=== PATIENT | male | born 1975 | race Caucasian/White ===

== ENCOUNTER 2019-12-07 22:57 | Emergency (ER) | payer BC, SELFPAY ==
--- NOTE | 2019-12-07 23:10 | XR_ITS ---
WS: [id number] PORTABLE CHEST HISTORY: Chest Pain COMPARISON: None Lungs are clear and well expanded. No pleural effusion or pneumothorax. Cardiac size: Normal. Mediastinum/Aorta: Normal mediastinum. 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 XR/XR chest 1V portable [id number] IMPRESSION: Unremarkable portable chest.
--- NOTE | 2019-12-07 23:10 | ED_ITS ---
HPI - Chest Pain General: Chief Complaint: Chest Pain Stated Complaint: CP Time Seen by Provider: 12/07/19 23:01 History of Present Illness: HPI narrative: Aroldo is a nice 44-year-old male who comes in complaining of chest pain. He states the pain is mostly in his back and it feels like a knotting type of ache. This pain has been constant for 7 days. He went to his chiropractor 3 days into this illness for an adjustment which helped the pain but it never resolved completely. The next 2 days after this he had some mild shortness of breath but the pain continued and came back to its initial intensity. Since that time the pain has waxed and waned but will not completely go away. He is unaware of anything that makes his pain better or worse other than the described chiropractic treatment. He denies any associated symptoms such as nausea and vomiting, diaphoresis, migration of his pain and he specifically denies any ripping tearing or migrating type of sensation. Tonight he had some occasional sharp chest pains that lasted just a few seconds and because of this that is why he came to the hospital. Associated symptoms: Deny abdominal pain, diaphoresis, dyspnea, fever(s), nausea, palpitations, syncope or vomiting Review of Systems General: Reports: other (negative unless marked) Const: Denies: fever, chills, body aches, fatigue, malaise or diaphoresis Eyes: Denies: change in vision or blurry vision ENMT: Denies: throat pain, painful swallowing, hoarseness, ear pain, ear discharge, Change in hearing or nasal discharge Card: Reports: chest pain; Denies: palpitations, irregular heart rhythm, syncope, pre-syncope, shortness of breath on exertion or shortness of breath when lying down Resp: Denies: shortness of breath, productive cough, non-productive cough, wheezing, coughing up blood or chest congestion GI: Denies: abdominal pain, nausea, vomiting, vomiting blood, coffee grounds in vomit, diarrhea, constipation, cramping, blood in stool or black tarry stool : Denies: flank pain, difficulty urinating, painful urination, urinary frequency, urinary urgency, decreased urine ouput, urinary incontinence or blood in urine Musc: Reports: back pain; Denies: neck pain, extremity pain, extremity swelling, joint pain, joint swelling, joint warmth or joint stiffness Skin/Breast: Denies: rash, skin tenderness or yellow skin Neuro: Denies: headache, numbness in extremities, weakness in extremities, changes in sensation, lack of coordination, difficulty walking, dizziness, v ertigo or confusion Endo: Denies: excessive thirst, tired all the time, cold intolerance, excessive sweating, flushing or hot flashes Balbir/Lymph: Denies: easy bruising, easy bleeding, petechiae or enlarged lymph nodes All/Imm: Denies: hives, throat swelling, tongue swelling, facial swelling or acute wheezing PFSH ED PFSH: Medical History (Updated 12/08/19 @ 01:41 by Avelina Lr) Hiatal hernia Surgical History (Updated 12/07/19 @ 23:14 by Avelina Lr) H/O hernia repair Family History (Updated 12/07/19 @ 23:14 by Avelina Lr) Other CAD (coronary artery disease) Social History (Updated 12/07/19 @ 23:14 by Avelina Lr) Smoking and tobacco status: never smoked Quit status (tobacco): has quit using tobacco Year quit tobacco: 2018 Physical Exam Const: COMMON NORMALS: no apparent distress, oriented x3, no limitations, healthy appearing and well nourished EXAM LIMITATIONS: no altered mental status GENERAL APPEARANCE: cooperative, well kempt and well developed ORIENTATION/CONSCIOUSNESS: Yes awake HENMT: COMMON NORMALS: normocephalic, head/scalp atraumatic, hearing grossly normal bilaterally, external ears normal, EAC's normal, external nose normal and moist oral mucous membranes HEAD & SCALP: normal to inspection, normocephalic and atraumatic FACE & SINUS: normal facial exam and face symmetric NOSE: external nose normal and nares normal EXTERNAL EAR: Yes external ears normal EXTERNAL AUDITORY CANAL: EAC's normal MOUTH: oral and palatal mucosa normal and tongue normal Eye: COMMON NORMALS: PERRL, EOMs intact bilaterally, conjunctivae normal and no scleral icterus GENERAL EYE: normal appearance of both eyes and normal light reflex CONJUNCTIVA: Yes conjunctivae normal SCLERA: sclerae normal CORNEA: Yes corneas normal PUPIL: Yes PERRL DIRECT OPHTHALMOSCOPY: Yes normal light reflex Neck/C-Spine: COMMON NORMALS: full ROM, no lymphadenopathy, supple, no meningeal signs and no JVD GENERAL: Yes normal visual inspection and Yes trachea midline CERVICAL SPINE: Yes cervical ROM normal Chest: COMMONS NORMALS: inspection of chest normal and palpation of chest normal Resp: COMMON NORMALS: normal respiratory effort, no retractions, no use of accessory muscles and clear to auscultation bilaterally EFFORT & INSPECTION: Yes able to speak in complete sentences AUSCULTATION: clear to auscultation bilaterally Cardio: COMMON NORMALS: no JVD, regular rate, regular rhythm, S1 normal heart sound, S2 normal heart sound, no gallops, no clicks, no murmurs, no rub and pe ripheral pulses 2+ throughout JUGULAR VENOUS DISTENTION: no JVD RATE: regular rate RHYTHM: regular rhythm HEART SOUNDS: S1 normal and S2 normal PERIPHERAL PULSES: pulses 2+ throughout GI: COMMON NORMALS: soft to palpation, non-tender, no hepatosplenomegaly and no masses INSPECTION: Yes normal to inspection PALPATION: Yes soft and Yes no hepatosplenomegaly : COMMON NORMALS: Yes no CVA tenderness BLADDER/KIDNEY EXAM: Yes no CVA tenderness Back/Pelvis: COMMON NORMALS: no CVA tenderness, thoracic and lumbar spine normal to inspection, no thoracic nor lumbar tenderness and thoraco-lumbar ROM normal Extremity: COMMON NORMALS: normal to inspection, full ROM, normal capillary refill, no joint enlargement, no clubbing, cyanosis or edema and no calf tenderness Neuro: COMMON NORMALS: oriented x3, CN's II-XII intact bilaterally, moves all extremities, no focal motor deficits and no sensory deficits noted MENINGEAL SIGNS: Yes no meningeal signs Psych: COMMON NORMALS: mental status grossly normal, thought process normal, cooperative, affect normal, speech normal and activity/motor behavior normal APPEARANCE: Yes well kempt SPEECH: Yes normal speech THOUGHT PROCESS: normal thought process Skin: COMMON NORMALS: no rashes or lesions noted, skin turgor normal, no jaundice, no petechiae and no mottling GENERAL SKIN EXAM: no rashes or lesions noted and turgor normal Course Vital Signs: Vital signs: Vital Signs Temperature 97.8 F 12/07/19 23:11 Pulse Rate 74 12/08/19 01:56 Respiratory Rate 16 12/08/19 01:56 Blood Pressure 135/85 12/08/19 01:56 Pulse Oximetry 98 12/08/19 01:56 MDM - Chest Pain MDM Narrative: Medical decision making narrative: 0003 -patient's EKG and troponin are unremarkable. With over a week's worth of pain I believe this excludes acute coronary syndrome as a cause for his symptoms. I believe an aortic dissection is unlikely as the patient has a negative d-dimer, a normal chest x-ray, strong equal peripheral pulses to all extremities, both carotid arteries, both femoral arteries and both feet. He does not describe a ripping/tearing sensation on there has been no migration of his pain. I did discuss this with him and after this he is declining that test and does not want to go through a CT scan. I have encouraged him to stay for another EKG and troponin per the hospital chest pain pathway and he does agree to do this. Discharge -the patient is still feeling good without any complaint of pain. Is pain at baseline is still present but again he has had 2 normal EKGs that are unchanged and 2- cardiac enzymes. His heart score is a 3. Nonetheless I offered to admit the patient to the hospital to alleviate his fears but he declines. He strongly feels this is musculoskeletal and he feels as though if he has had okay EKGs and cardiac enzymes here he would like to go home. He does agree to return if his symptoms change or worsen but at this time he is feeling better would like to be discharged. The patient was warned but he was also welcomed to to return. Lab Data: Labs: Lab Results 12/07/19 12/07/19 12/07/19 Range/Units 23:20 23:20 23:20 WBC 6.6 (4.0-10.0) 10^3/ uL RBC 5.04 (4.1-5.3) 10^6/u L Hgb 14.8 (11.7-16.6) g/dL Hct 43.9 (42.0-52.0) % MCV 87.1 (80-94) fL MCH 29.4 (28.0-34.0) pg MCHC 33.7 (30.0-36.0) g/dL RDW 11.8 L (12.1-15.1) % Plt Count 248 (130-400) 10^3/c mm MPV 8.6 (7.4-10.4) fL Neut % (Auto) 43.2 % Lymph % (Auto) 41.3 % Humphreys % (Auto) 7.9 % Eos % (Auto) 6.2 % Baso % (Auto) 1.2 % Neut # (Auto) 2.9 (1.8-7.7) 10^3/u L Lymph # (Auto) 2.7 (0.8-4.8) 10^3/u L Humphreys # (Auto) 0.5 (0.2-0.9) 10^3/u L Eos # (Auto) 0.4 (0.0-0.8) 10^3/u L Baso # (Auto) 0.1 (0.0-0.1) 10^3/u L Nucleated RBC % (a uto) 0 % Nucleated RBCs # 0.0 /100WBC D-Dimer <= 0.27 (0-0.59) ug/mIFE U Sodium 138 (136-145) mmol/L Potassium 4.0 (3.5-5.1) mmol/L Chloride 100 (98-107) mmol/L Carbon Dioxide 29 (22-29) mmol/L Anion Gap 13.0 (5-19) BUN 13 (6-20) mg/dL Creatinine 1.1 (0.7-1.2) mg/dL GFR Calculation 72.4 L (90-130) mL/min Glucose 123 H (65-115) mg/dL Calculated Osmolal ity 284 L (285-295) mOsm/k g Calcium 10.3 (8.5-10.5) mg/dL Total Bilirubin 0.3 (0.15-1.2) mg/dL AST 17 (0-40) U/L ALT 15 (0-41) U/L Alkaline Phosphata se 80 (40-130) IU/L Troponin T Baselin e (0-15) ng/mL Troponin T 120 Min knik (0-15) ng/mL Delta Troponin T (0-10) ABS# Total Protein 7.5 (6.6-8.7) g/dL Albumin 4.8 (3.5-5.2) g/dL Globulin 2.7 (1.3-4.6) g/dL Lipase 28 (13-60) U/L 12/07/19 12/08/19 Range/Units 23:20 01:02 WBC (4.0-10.0) 10^3/ uL RBC (4.1-5.3) 10^6/u L Hgb (11.7-16.6) g/dL Hct (42.0-52.0) % MCV (80-94) fL MCH (28.0-34.0) pg MCHC (30.0-36.0) g/dL RDW (12.1-15.1) % Plt Count (130-400) 10^3/c mm MPV (7.4-10.4) fL Neut % (Auto) % Lymph % (Auto) % Humphreys % (Auto) % Eos % (Auto) % Baso % (Auto) % Neut # (Auto) (1.8-7.7) 10^3/u L Lymph # (Auto) (0.8-4.8) 10^3/u L Humphreys # (Auto) (0.2-0.9) 10^3/u L Eos # (Auto) (0.0-0.8) 10^3/u L Baso # (Auto) (0.0-0.1) 10^3/u L Nucleated RBC % (a uto) % Nucleated RBCs # /100WBC D-Dimer (0-0.59) ug/mIFE U Sodium (136-145) mmol/L Potassium (3.5-5.1) mmol/L Chloride (98-107) mmol/L Carbon Dioxide (22-29) mmol/L Anion Gap (5-19) BUN (6-20) mg/dL Creatinine (0.7-1.2) mg/dL GFR Calculation (90-130) mL/min Glucose (65-115) mg/dL Calculated Osmolal ity (285-295) mOsm/k g Calcium (8.5-10.5) mg/dL Total Bilirubin (0.15-1.2) mg/dL AST (0-40) U/L ALT (0-41) U/L Alkaline Phosphata se (40-130) IU/L Troponin T Baselin e 8 (0-15) ng/mL Troponin T 120 Min knik 7.39 (0-15) ng/mL Delta Troponin T -0.61 L (0-10) ABS# Total Protein (6.6-8.7) g/dL Albumin (3.5-5.2) g/dL Globulin (1.3-4.6) g/dL Lipase (13-60) U/L Imaging Data^: CXR: Radiologist's impression: No acute cardiopulmonary findings. EKG Data^: EKG 1: Attestation: I personally reviewed and interpreted this EKG as follows: EKG interpretation date: 12/07/19 EKG interpretation time: 23:07 Interpretation: Normal sinus rhythm at 79 beats a minute, right bundle branch block, nonspecific ST and T wave changes. EKG 2: Attestation: I personally reviewed and interpreted this EKG as follows: EKG interpretation date: 12/08/19 EKG interpretation time: 01:23 Interpretation: Normal sinus rhythm at 73 beats a minute, right bundle branch block, no other acute ST-T wave changes. Unchanged from previous. Discharge Plan Discharge Patient Disposition: Home, Self-Care Clinical Impression: Chest pain Qualifiers: Chest pain type: unspecified Qualified Code(s): R07.9 - Chest pain, unspecified Condition: Stable Prescriptions: New aspirin 325 mg tablet 325 mg PO DAILY Qty: 30 RF: 0 Discharge Orders: Discharge Order (Routine); Ordered 12/08/19 Ordered By: Avelina Lr Referrals: Yoselin Melendez MD [Physician] - 1-3 days Discharge Diet: Advance as tolerated Discharge Activity: Increase activity as tolerated Patient Instructions: Chest Pain (ED) Activity Restrictions/Additional Instructions: Please return to the ER immediately for any of the signs or symptoms listed on your discharge instruction sheets, worsening/changing of your symptoms, you are not getting better as quickly as expected, or for ANY other cause or concerns. You have been offered further evaluation and care of your heart including admission for stress testing but have declined. If your symptoms return or you change your mind you are more than welcome to return to the ER for recheck. Be certain to follow-up with your doctor or follow-up with Dr. Melendez as soon as possible for further evaluation and care. Discharge Date/Time: 12/08/19 01:56 Coding Level of Care Code ED Special Education Director for Chg Fwd Exam Comprehensive
[2019-12-07 23:11] VITALS: BP 183/103; PULSE 70; RESP 18; TEMP 36.6; O2SAT 100; BMI 26.6
[2019-12-07 23:30] LABS: Basophils # 0.1 10^3/uL (0.0-0.1); Basophils % 1.2 %; Eosinophils # 0.4 10^3/uL (0.0-0.8); Eosinophils % 6.2 %; Hematocrit 43.9 % (42.0-52.0); Hemoglobin 14.8 g/dL (11.7-16.6); Lymphocytes # 2.7 10^3/uL (0.8-4.8); Lymphocytes % 41.3 %; Mean Corpuscular HGB Conc 33.7 g/dL (30.0-36.0); Mean Corpuscular Hemoglobin 29.4 pg (28.0-34.0); Mean Corpuscular Volume 87.1 fL (80-94); Mean Platelet Volume 8.6 fL (7.4-10.4); Monocytes # 0.5 10^3/uL (0.2-0.9); Monocytes % 7.9 %; Neutrophils # 2.9 10^3/uL (1.8-7.7); Neutrophils % 43.2 %; Nucleated Red Blood Cells % 0 %; Platelet Count 248 10^3/cmm (130-400); Red Blood Count 5.04 10^6/uL (4.1-5.3); Red Cell Distribution Width 11.8 % (12.1-15.1); White Blood Count 6.6 10^3/uL (4.0-10.0)
[2019-12-07 23:41] LABS: D Dimer <= 0.27 ug/mIFEU (0-0.59)
[2019-12-07 23:48] LABS: Alanine Aminotransferase 15 U/L (0-41); Albumin Level 4.8 g/dL (3.5-5.2); Alkaline Phosphatase 80 IU/L (40-130); Aspartate Amino Transferase 17 U/L (0-40); Blood Urea Nitrogen 13 mg/dL (6-20); Calcium 10.3 mg/dL (8.5-10.5); Carbon Dioxide 29 mmol/L (22-29); Chloride 100 mmol/L (98-107); Globulin 2.7 g/dL (1.3-4.6); Glomerular Filtration Rate 72.4 mL/min (90-130); Glucose 123 mg/dL (65-115); Lipase 28 U/L (13-60); Osmolality Calculated 284 mOsm/kg (285-295); Sodium 138 mmol/L (136-145); Total Bilirubin 0.3 mg/dL (0.15-1.2); Total Protein 7.5 g/dL (6.6-8.7)
[2019-12-07] MEDS: aspirin 325 mg Tablet PO (23:48)
[2019-12-07 23:50] LABS: Troponin(5th) Baseline 8 ng/mL (0-15)
[2019-12-08] MEDS: ketorolac 30 mg/mL INJ 10 MG IVP (00:51)
[2019-12-08 01:26] LABS: Troponin 5 2HR 7.39 ng/mL (0-15)
[2019-12-08 01:48] LABS: Troponin 5 2HR Delta -0.61 ABS# (0-10)
[2019-12-08 01:56] VITALS: BP 135/85; PULSE 74; RESP 16; O2SAT 98
--- NOTE | 2019-12-08 02:13 | PC.NURSE ---
RN reviewed and agrees with assessment
--- NOTE | 2019-12-08 05:10 | ECG_ITS ---
Measurements Intervals [place] Rate: 73 P: 73 [place]: 138 QRS: 77 QRSD: 148 T: 47 QT: 401 QTc: 443 SINUS RHYTHM RIGHT BUNDLE BRANCH BLOCK [120+ ms QRS DURATION, UPRIGHT V1, 40+ ms S IN I/aVL/V4/V5/V6] No previous ECG available for comparison Electronically Signed On 12-08-2019 9:40:25 CDT by Yoselin Melendez M.D. [email or web address]
--- NOTE | 2019-12-08 12:36 | DCPLANNER ---
associate property manager had message to schedule a follow up appointment for patient with [facility], Dr. Melendez. associate property manager called [facility], gave clinic patients information. associate property manager was told that patients information would be printed and reviewed. Clinic will call patient with appointment information, upper caser will call for appointment information.
--- NOTE | 2019-12-09 13:07 | DCPLANNER ---
Patient has a follow up appointment scheduled for Friday, December 13, 2019 at 10:[address] Melendez. Clinic will call patient with appointment information.
--- NOTE | 2019-12-24 14:07 | DCPLANNER ---
Patient did have an appointment scheduled for 12.13.19 with [facility], patient did not attend the appointment.
== END 2019-12-08 01:56 | disposition home or self-care (01) ==
PROVIDERS: Emergency Provider Emergency Medicine
DX: R07.9 Chest pain, unspecified (principal); K44.9 Diaphragmatic hernia without obstruction or gangrene; Z87.891 Personal history of nicotine dependence; Z82.49 Family history of ischemic heart disease and other diseases of the circulatory system
CPT/HCPCS: 12345; 36415; 71045; 80053; 83690; 84484; 85025; 85378; 93005; 96375; 99282; J1885

== ENCOUNTER 2021-04-25 16:43 | Emergency (ER) | payer BC, SELFPAY ==
[2021-04-25 16:59] VITALS: BP 143/82; PULSE 99; RESP 19; TEMP 37.3; O2SAT 96
--- NOTE | 2021-04-25 17:32 | XRR_ITS ---
PROCEDURE INFORMATION: Exam: XR Chest Exam date and time: 04/25/2021 5:32 PM Age: 46 years old Clinical indication: Cough and fever and shortness of breath; Prior surgery; Surgery type: Hernia; Patient HX: Ex smoker; Additional info: Dyspnea/cough TECHNIQUE: Imaging protocol: XR of the chest. Views: 1 view. COMPARISON: CR XR chest 1V portable [id number] 12/07/2019 11:38 PM FINDINGS: Lungs: Ill-defined opacities along the periphery of the mid and lower lungs. Pleural spaces: Unremarkable. No pleural effusion. No pneumothorax. Heart/Mediastinum: Unremarkable. No cardiomegaly. Bones/joints: Unremarkable. XR/XR chest 1V portable [id number] IMPRESSION: Ill-defined opacities along the periphery of the mid and lower lungs. Findings are suspicious for multifocal pneumonia.
--- NOTE | 2021-04-25 17:33 | ED_ITS ---
HPI - COVID General: Chief Complaint: Fever Stated Complaint: COVID +, N/V, DEHYDRATED Time Seen by Provider: 04/25/21 17:12 Triage information: No fever, cough or shortness of breath . No known COVID + exposure last 14 days History of Present Illness: HPI Narrative: 46-year-old male comes in complaining of shortness of breath. He has fever cough decreased appetite with vomiting. He was treated with doxycycline and Zofran earlier in the week. He states he has not had much relief. He states he is outside of his quarantine so felt that this was something beyond Covid although it began while he was on quarantine. He denies any chest pain at this time. MD complaint: known COVID positive COVID 19 common symptoms: positive fever(s), chills, cough, non-productive cough, dyspnea, fatigue, body aches, headache(s), loss of sense of smell and/or taste, nasal congestion, vomiting and diarrhea COVID 19 other sytmptoms: negative chest pain or requiring oxygen Onset (ago): week(s) (-) Severity: mild Treatment prior to arrival: none COVID Results: No Data to Display Review of Systems Const: Reports: fever(s), chills, body aches and fatigue ENMT: Reports: nasal congestion Card: Denies: chest pain, edema, dyspnea on exertion or orthopnea Resp: Reports: dyspnea and non-productive cough GI: Reports: vomiting and diarrhea : Denies: flank pain, dysuria, urinary frequency or urinary urgency Skin/Breast: Denies: rash or pruritus Neuro: Reports: headache(s) PFSH ED PFSH: Medical History Hiatal hernia Surgical History H/O hernia repair Family History Other CAD (coronary artery disease) Social History Smoking and tobacco status: never smoked Quit status (tobacco): has quit using tobacco Year quit tobacco: 2018 Physical Exam Const: COMMON NORMALS: no acute distress GENERAL APPEARANCE: cooperative and comfortable ORIENTATION/CONSCIOUSNESS: Yes awake, Yes oriented to person, Yes oriented to place and Yes oriented to time HENMT: COMMON NORMALS: normocephalic, atraumatic and hearing grossly normal b ilaterally HEAD & SCALP: normocephalic and atraumatic Neck/C-Spine: COMMON NORMALS: no JVD Resp: COMMON NORMALS: normal respiratory effort, No retractions, No use of accessory muscles and clear to auscultation bilaterally AUSCULTATION: clear to auscultation bilaterally Cardio: COMMON NORMALS: no JVD, regular rate, regular rhythm and No murmurs present (Cardio) RATE: regular rate RHYTHM: regular rhythm GI: COMMON NORMALS: Soft to palpation and No hepatosplenomegaly present AUSCULTATION: Yes normoactive bowel sounds PALPATION: Yes Soft to palpation, No Tenderness to palpation present (GI), No Guarding due to palpation present (GI) and Yes No hepatosplenomegaly present Extremity: COMMON NORMALS: normal to inspection, capillary refill normal, no clubbing, cyanosis or edema, no calf tenderness and no pedal edema Neuro: SENSORIUM/ORIENTATION: Yes oriented to person, Yes oriented to place and Yes oriented to time Skin: COMMON NORMALS: no rashes or lesions noted GENERAL SKIN EXAM: no rashes or lesions noted Course Vital Signs: Vital signs: Vital Signs Temperature 99.1 F 04/25/21 16:59 Pulse Rate 105 H 04/25/21 18:13 Respiratory Rate 16 04/25/21 18:13 Blood Pressure 143/82 04/25/21 16:59 Pulse Oximetry 95 04/25/21 18:13 MDM - COVID 2 MDM Narrative: Medical decision making narrative: Discussed with the patient he appears still have the effects of COVID-19 infection. Discussed that the quarantine time does not limit the length of symptoms it is just to wait to establish the presence of the diagnosis which she definitely has. He is beyond the timeframe for monoclonal antibodies at this point supportive cares he can use promethazine for a time to see if that helps more than the Zofran to use albuterol as needed continue to quarantine self until the symptoms have resolved for at least 72 hours. COVID Results: No Data to Display Discharge Plan Discharge Patient Disposition: Home Clinical Impression: COVID-19 Condition: Stable Prescriptions: New albuterol sulfate 90 mcg/actuation HFA aerosol inhaler 2 inh INHALATION Q4H PRN (Reason: shortness of breath or wheezing) Qty: 18 RF: 0 promethazine 25 mg tablet 25 mg PO Q6H PRN (Reason: nausea and vomiting) Qty: 20 RF: 0 No Action doxycycline hyclate 100 mg capsule 100 mg PO BID RF: 0 ondansetron HCl 4 mg tablet 4 mg PO Q8H PRN (Reason: NAUSEA/VOMITING) RF: 0 Discharge Orders: Discharge ED (Routine); Ordered 04/25/21 Ordered By: Rey Johnson Patient Instructions: Opioid Safety Coding Level of Care Code ED Waistband Setter Lockstitch for Ferdinandg Fwd Exam Comprehensive
[2021-04-25 18:13] VITALS: PULSE 105; RESP 16; O2SAT 95
== END 2021-04-25 18:14 | disposition home or self-care (01) ==
PROVIDERS: Emergency Provider Family Medicine
DX: U07.1 COVID-19 (principal); Z87.891 Personal history of nicotine dependence
CPT/HCPCS: 71045; 99282

== ENCOUNTER → 2022-04-01 15:04 | Outpatient (BNVA) | payer SELFPAY | PROVIDERS: Referring Provider Dermatology; Visit Provider Podiatrist Foot & Ankle Surgery | DX: M79.672 Pain in left foot (principal); M79.671 Pain in right foot | CPT/HCPCS: 73630 ==